=== PATIENT | female | born 1970 | race Caucasian/White ===

== ENCOUNTER 2017-12-25 07:30 | Day surgery (SDC) | payer OTHER ==
[~2017-12-25 07:30] MED LIST: ceFAZolin IV 1 gm in Dextrose 1 GM/50 ML BAG IVPB ONE
[2017-12-25] MEDS ORDERED: Morphine 10 mg/5 ml Oral Soln PO PRN (07:40)
[2017-12-25] MEDS ORDERED: Dextrose 5%/0.45% NS 1,000 ML IV SCH (07:45)
[2017-12-25] MEDS ORDERED: Propofol 10 mg/ml Inj (20 ML) ONE (11:13)
[2017-12-25] MEDS ORDERED: Succinylcholine Chloride 20 mg/ml Syr (5 ml) IV ONE (11:14)
[2017-12-25] MEDS ORDERED: Lactated Ringer's 1,000 ML IV SCH (12:15)
[2017-12-25 12:23] VITALS: O2SAT 100
[2017-12-25] MEDS ORDERED: Lactated Ringer's 1,000 ML IV ONE (13:45)
[2017-12-25] MEDS ORDERED: Acetaminophen 650mg/20.3ml solution UD PO PRN (14:30)
[2017-12-25 14:38] VITALS: RESP 16
[2017-12-25 16:00] VITALS: BP 148/72; PULSE 64; TEMP 97.3
--- NOTE | 2017-12-25 23:00 | OP ---
PROCEDURE DATE: 12/25/2017 PREOPERATIVE DIAGNOSIS: Chronic tonsillitis. POSTOPERATIVE DIAGNOSIS: Chronic tonsillitis. PROCEDURE: Tonsillectomy. SIGNIFICANT FINDINGS: 2+ tonsils. DESCRIPTION OF PROCEDURE: The patient was brought into the room and placed in the supine position. Anesthesia was initiated through an ET tube. The patient was draped in the usual manner. Mouth gag was placed in the oral cavity, opened and suspended on the [employer] standards associate the usual manner. Right tonsil was grabbed and pulled medially. Incision was made in the anterior tonsillar pillar using plasma knife. Dissections were done between tonsil and tonsillar fossa using plasma knife until the tonsil was removed. Bleeding was controlled using plasma knife. Next, the other tonsil was grabbed and pulled medially, incision was made in the anterior tonsillar pillar using a plasma knife. Dissection was done between tonsil and tonsillar fossa using plasma knife until the tonsil was removed. Bleeding was controlled using plasma knife. Both tonsillar beds were rubbed vigorously with plasma knife wand. No bleeding was noted. Mouth gag was let down for 30 seconds and put back up, no bleeding was noted. Mouth gag was taken down and removed. The patient was taken off anesthesia and taken to the recovery room in stable manner. Ray Cronin MD
== END 2017-12-25 15:45 | disposition home or self-care (01) ==
LOC: C.SDS 07:30
PROVIDERS: ATTEND Otolaryngology
DX: J35.01 Chronic tonsillitis (principal)
CPT/HCPCS: 42826; 88304; J0690; J1100; J1170; J2405; J2704; J3010; J7120

== ENCOUNTER 2017-12-27 19:00 | Emergency (ER) | payer OTHER ==
[2017-12-27 19:19] VITALS: RESP 18
--- NOTE | 2017-12-27 19:29 | C.PDOC ---
History Of Present Illness Patient is a 47-year-old female, s/p tonsillectomy two days ago, presents to the emergency department with complaints of throat pain. Patient states it hurts to swallow, and she is tasting blood. Denies any fevers, vomiting, shortness of breath, chest pain, or any other associated symptoms. No other complaints at this time. Time Seen by Provider: 12/27/17 19:29 Chief Complaint (Nursing): ENT Problem History Per: Patient Onset/Duration Of Symptoms: Days Past Medical History Reviewed: Historical Data, Nursing Documentation, Vital Signs Vital Signs: Last Vital Signs Temp 98.2 F 12/27/17 21:04 Pulse 69 12/27/17 21:04 Resp 18 12/27/17 21:04 BP 110/72 12/27/17 21:04 Pulse Ox 100 12/27/17 21:04 - Medical History PMH: Fractures (HX: FX. 5TH FINGER-LEFT) - [facility] Procedures CLOSED ENDOSCOPIC BIOPSY OF LARGE INTESTINE (02/16/03) D & C NEC (01/25/03) ESOPHAGOGASTRODUODENOSCOPY [EGD] W/CLOSED BIOPSY (02/16/03) INJECT/INFUSE NEC (11/29/06) LOCAL DESTR OVA LES NEC (09/06/04) OTH UNILAT SALPINGO-OOPHORECTOMY (09/06/04) OTH VAGINAL HYSTERECTOMY (09/06/04) OTHER ENDOSCOPY OF SM INTEST (12/06/02) SPINAL TAP (05/24/98) Family History: States: No Known Family Hx - Social History Hx Alcohol Use: No Hx Substance Use: No - Immunization History Hx Tetanus Toxoid Vaccination: No Hx Influenza Vaccination: No Hx Pneumococcal Vaccination: No Review Of Systems Constitutional: Negative for: Fever, Chills ENT: Positive for: Throat Pain. Negative for: Nose Discharge, Mouth Swelling, Throat Swelling Cardiovascular: Negative for: Chest Pain Respiratory: Negative for: Shortness of Breath Gastrointestinal: Negative for: Vomiting Physical Exam - Physical Exam Appears: Non-toxic, No Acute Distress Skin: Warm, Dry, No Rash Head: Atraumatic, Normacephalic Eye(s): bilateral: Normal Inspection Nose: Normal Oral Mucosa: Moist Lips: Normal Appearing Throat: Other ((+)tonsillectomy scar. No blood visualized in posterior oropharynx) Neck: Normal ROM, Supple Cardiovascular: Rhythm Regular, No Murmur Respiratory: Normal Breath Sounds, No Accessory Muscle Use, No Rales, No Rhonchi , No Wheezing Neurological/Psych: Oriented x3, Normal Speech ED Course And Treatment O2 Sat by Pulse Oximetry: 98 (RA) Pulse Ox Interpretation: Normal Progress Note: Patient treated with PO Toradol and IVFs. Disposition Counseled Patient/Family Regarding: Studies Performed, Diagnosis, Need For Followup - Disposition Referrals: Ray Cronin MD [Primary Care Provider] - Disposition: HOME/ ROUTINE Disposition Time: 21:06 Condition: FAIR Forms: [employer] (Eritrean) - Clinical Impression Clinical Impression: Throat pain, S/P tonsillectomy - Scribe Statement The provider has reviewed the documentation as recorded by the Scribe (Cathleen Vázquez) All medical record entries made by the Scribe were at my direction and personally dictated by me. I have reviewed the chart and agree that the record accurately reflects my personal performance of the history, physical exam, medical decision making, and the department course for this patient. I have also personally directed, reviewed, and agree with the discharge instructions and disposition.
[2017-12-27] MEDS ORDERED: Sodium Chloride 0.9% 1,000 ML IV ONE (19:43)
[2017-12-27] MEDS ORDERED: Sodium Chloride 0.9% 1,000 ML ONE (19:53)
[2017-12-27 21:04] VITALS: BP 110/72; PULSE 69; TEMP 98.2
[2017-12-27 21:08] VITALS: O2SAT 98
== END 2017-12-27 21:22 | disposition home or self-care (01) ==
LOC: SUPCPDRO 19:00 → C.ER 19:00
DX: R07.0 Pain in throat (principal); Z98.890 Other specified postprocedural states
CPT/HCPCS: 96361; 96374; 99283; J1885; J7040

== ENCOUNTER 2018-01-01 13:29 | Inpatient (IN) | payer OTHER ==
[2018-01-01] MEDS ORDERED: Sodium Chloride 0.9% 1,000 ML IV ONE (13:50)
[2018-01-01] MEDS ORDERED: Sodium Chloride 0.9% 1,000 ML ONE (14:48)
[2018-01-01] MEDS ORDERED: Sodium Chloride 0.9% 1,000 ML IV STA (15:15)
[2018-01-01 15:17] LABS: BASO % 0.5 % (0.0-2.0); EOS % 0.2 % (0.0-4.0); HEMOGLOBIN 12.9 g/dL (11.0-16.0); LYMPH # 1.4 K/uL (1.0-4.3); LYMPH % 20.6 % (20.0-40.0); MEAN CELL VOLUME 91.3 fL (81.0-99.0); MEAN CORPUSCULAR HEMOGLOBIN 30.2 pg (27.0-31.0); MEAN CORPUSCULAR HGB CONC 33.1 g/dL (33.0-37.0); MEAN PLATELET VOLUME 8.6 fL (7.2-11.7); MONO # 0.6 K/uL (0.0-0.8); MONO % 8.7 % (0.0-10.0); NEUT # 4.9 K/uL (1.8-7.0); RBC 4.26 Mil/uL (3.80-5.20); RED CELL DISTRIBUTION WIDTH 13.6 % (11.5-14.5)
[2018-01-01] MEDS ORDERED: Nystatin 100,000 Units/ml Oral Susp 5 ml UD PO STA (15:17)
[2018-01-01 15:31] LABS: ALB/GLOB RATIO 0.9 (1.0-2.1); ALBUMIN 4.4 g/dL (3.5-5.0); ALT/SGPT 38 U/L (9-52); AST/SGOT 30 U/L (14-36); BLOOD UREA NITROGEN 26 mg/dL (7-17); CALCIUM 9.9 mg/dl (8.6-10.4); GFR AFRICAN-AMERICAN > 60; GFR NON-AFRICAN AMERICAN 59; LIPASE 25 U/L (23-300)
--- NOTE | 2018-01-01 17:00 | C.PDOC ---
Time Seen by Provider: 01/01/18 13:45 Chief Complaint (Nursing): Weakness/Neurological Deficit Past Medical History Vital Signs: Last Vital Signs Temp 98.1 F 01/01/18 13:38 Pulse 60 01/01/18 13:38 Resp 20 01/01/18 13:38 BP 117/67 01/01/18 13:38 Pulse Ox 99 01/01/18 13:38 - Medical History PMH: Fractures (HX: FX. 5TH FINGER-LEFT) Denies: Chronic Kidney Disease - [facility] Procedures CLOSED ENDOSCOPIC BIOPSY OF LARGE INTESTINE (02/16/03) D & C NEC (01/25/03) ESOPHAGOGASTRODUODENOSCOPY [EGD] W/CLOSED BIOPSY (02/16/03) INJECT/INFUSE NEC (11/29/06) LOCAL DESTR OVA LES NEC (09/06/04) OTH UNILAT SALPINGO-OOPHORECTOMY (09/06/04) OTH VAGINAL HYSTERECTOMY (09/06/04) OTHER ENDOSCOPY OF SM INTEST (12/06/02) SPINAL TAP (05/24/98) - Social History Hx Alcohol Use: No Hx Substance Use: No - Immunization History Hx Tetanus Toxoid Vaccination: No Hx Influenza Vaccination: No Hx Pneumococcal Vaccination: No ED Course And Treatment - Laboratory Results Result Diagrams: 01/01/18 15:11 01/01/18 15:11 Lab Interpretation: Normal O2 Sat by Pulse Oximetry: 99 Progress Note: IV NS x 2 liters, toradol IV, Nystatin swish and swallow PO - Physician Consult Information Outcome Of Conversation: 1400: d/w Dr Cronin- ENT, asks for hydration, labs, oral swish and swallow and 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 1700: d/w Dr. Paul- Medicine Bulldozer Mechanic- ok to med/surg Obs. Medical Decision Making Medical Decision Making: s/p tonsillectomy 12/25/17 poor PO intake and poor pain control @ home (cannot tolerate narcotics) oral thrush and clinically dry but labs wnl Disposition Doctor Will See Patient In The: Hospital Counseled Patient/Family Regarding: Studies Performed, Diagnosis - Disposition Disposition: HOSPITALIZED Disposition Time: 17:01 Condition: GOOD - Clinical Impression Clinical Impression: S/P tonsillectomy, Oral thrush, Dehydration
--- NOTE | 2018-01-01 19:58 | CP.PCM.HP ---
History of Present Illness - History of Present Illness History of Present Illness: RECENT H/O TONSILLECTOMY HAS DIFFICULTY SWALLOWING AND ODONOPHAGIA . WAS EVALUATED BY ENT AND NOTICED WHITE PATCHES AND ADMITTED FOR IV HYDRATION Present on Admission - Present on Admission Any Indicators Present on Admission: No Review of Systems - Review of Systems All systems: reviewed and no additional remarkable complaints except (DIFFICULT SWALLOWING) Past Patient History - Infectious Disease Hx of Infectious Diseases: None - Past Medical History & Family History Past Medical History?: Yes - Past Social History Smoking Status: Light Smoker < 10 Cigarettes Daily - CARDIAC Hx Cardiac Disorders: No - PULMONARY Hx Respiratory Disorders: No - NEUROLOGICAL Hx Neurological Disorder: No - HEENT Hx HEENT Problems: Yes Other/Comment: HX: CHRONIC TONSILLITIS - RENAL Hx Chronic Kidney Disease: No - ENDOCRINE/METABOLIC Hx Endocrine Disorders: No - HEMATOLOGICAL/ONCOLOGICAL Hx Blood Disorders: No - INTEGUMENTARY Hx Dermatological Problems: No - MUSCULOSKELETAL/RHEUMATOLOGICAL Hx Fractures: Yes (HX: FX. 5TH FINGER-LEFT) - GASTROINTESTINAL Hx Gastrointestinal Disorders: No - GENITOURINARY/GYNECOLOGICAL Hx Genitourinary Disorders: Yes Other/Comment: HX: ENDOMETRIOSIS - PSYCHIATRIC Hx Substance Use: No - SURGICAL HISTORY Hx Surgeries: Yes Hx Hysterectomy: Yes (PARTIAL HYSTERECTOMY(HX. ENDOMETROSIS)) Hx Musculoskeletal Surgery: Yes Hx Orthopedic Surgery: Yes Other/Comment: HX: SURGERY TO REPAIR TORN RIGHT ROTATOR CUFF. HX: FUSION LEFT 5TH FINGER DUE TO FX. - ANESTHESIA Hx Anesthesia: Yes Hx Anesthesia Reactions: No Hx Malignant Hyperthermia: No Meds Allergies/Adverse Reactions: Allergies Allergy/AdvReac Type Severity Reaction Status Date / Time codeine Allergy Intermediate VOMITING Verified 01/01/18 13:38 Physical Exam - Head Exam Head Exam: ATRAUMATIC, NORMAL INSPECTION, NORMOCEPHALIC - Eye Exam Eye Exam: EOMI, Normal appearance, PERRL - ENT Exam ENT Exam: Mucous Membranes Dry (WHITE THRUSH ) - Neck Exam Neck exam: Positive for: Normal Inspection - Respiratory Exam Respiratory Exam: Clear to Auscultation Bilateral, NORMAL BREATHING PATTERN - Cardiovascular Exam Cardiovascular Exam: REGULAR RHYTHM - GI/Abdominal Exam GI & Abdominal Exam: Normal Bowel Sounds, Soft. absent: Tenderness Results - Vital Signs Recent Vital Signs: Last Vital Signs Temp 97.8 F 01/01/18 19:35 Pulse 62 01/01/18 19:35 Resp 18 02/09/18 19:35 BP 118/72 01/01/18 19:35 Pulse Ox 97 01/01/18 19:35 - Labs Result Diagrams: 01/01/18 15:11 01/01/18 15:11 Labs: Laboratory Results - last 24 hr 01/01/18 01/01/18 15:11 15:11 WBC 7.0 RBC 4.26 Hgb 12.9 Hct 38.9 MCV 91.3 MCH 30.2 MCHC 33.1 RDW 13.6 Plt Count 240 MPV 8.6 Neut % (Auto) 70.0 Lymph % (Auto) 20.6 Barron % (Auto) 8.7 Eos % (Auto) 0.2 Baso % (Auto) 0.5 Neut # (Auto) 4.9 Lymph # (Auto) 1.4 Barron # (Auto) 0.6 Eos # (Auto) 0.0 Baso # (Auto) 0.0 Sodium 141 Potassium 4.4 Chloride 100 Carbon Dioxide 25 Anion Gap 20 BUN 26 H Creatinine 1.0 Est GFR ( Amer) > 60 Est GFR (Non-Af Amer) 59 Random Glucose 82 Calcium 9.9 Total Bilirubin 0.9 AST 30 ALT 38 Alkaline Phosphatase 81 Total Protein 9.2 H Albumin 4.4 Globulin 4.8 H Albumin/Globulin Ratio 0.9 L Lipase 25 Assessment & Plan (1) Oral thrush Status: Acute Comment: IV FLUID AND DIFLUCAN (2) S/P tonsillectomy Status: Acute
[2018-01-01] MEDS: Sodium Chloride 0.45% 1,000 ML IV SCH (20:30)
--- NOTE | 2018-01-01 21:04 | C.PDOC ---
History Of Present Illness Patient is a 47 y/o female who presents to the ED referred by Dr. Cronin for sore throat and poor PO intake since tonsillectomy 12/26/17. No other physical complaints at this time. Time Seen by Provider: 01/01/18 13:45 Chief Complaint (Nursing): Weakness/Neurological Deficit History Per: Patient History/Exam Limitations: None Onset/Duration Of Symptoms: Days (since tonsillectomy 12/26/17) Quality (Mouth/Throat): Other (sore throat, decreased PO intake) Symptoms Have Been: Continuous Severity: Moderate Past Medical History Reviewed: Historical Data, Nursing Documentation, Vital Signs Vital Signs: Last Vital Signs Temp 97.9 F 01/01/18 22:29 Pulse 60 01/01/18 22:29 Resp 20 01/01/18 22:29 BP 116/70 01/01/18 22:29 Pulse Ox 97 01/01/18 21:11 - Medical History PMH: No Chronic Diseases, Fractures (HX: FX. 5TH FINGER-LEFT) Denies: Chronic Kidney Disease Surgical History: Tonsillectomy (12/26/17) - [facility] Procedures CLOSED ENDOSCOPIC BIOPSY OF LARGE INTESTINE (02/16/03) D & C NEC (01/25/03) ESOPHAGOGASTRODUODENOSCOPY [EGD] W/CLOSED BIOPSY (02/16/03) INJECT/INFUSE NEC (11/29/06) LOCAL DESTR OVA LES NEC (09/06/04) OTH UNILAT SALPINGO-OOPHORECTOMY (09/06/04) OTH VAGINAL HYSTERECTOMY (09/06/04) OTHER ENDOSCOPY OF SM INTEST (12/06/02) SPINAL TAP (05/24/98) Family History: States: No Known Family Hx - Social History Hx Tobacco Use: No Hx Alcohol Use: No Hx Substance Use: No - Immunization History Hx Tetanus Toxoid Vaccination: No Hx Influenza Vaccination: No Hx Pneumococcal Vaccination: No Review Of Systems ENT: Positive for: Throat Pain (sore throat) Physical Exam - Physical Exam Appears: Well, Non-toxic, No Acute Distress Skin: Normal Color, Warm, Dry Head: Atraumatic, Normacephalic Tongue: Other (greenish-white, dry coating on tongue; clinically dry) Throat: Other (whitish coating on back of oropharynx; patent airway; negative hot potato voice) ED Course And Treatment - Laboratory Results Result Diagrams: 01/01/18 15:11 01/01/18 15:11 O2 Sat by Pulse Oximetry: 97 Medical Decision Making Medical Decision Making: Blood work, drug screen, HCG urine, and UA ordered. IV fluids and nystatin oral administered. Patient to be admitted. Disposition Doctor Will See Patient In The: Hospital Counseled Patient/Family Regarding: Studies Performed, Diagnosis - Disposition Disposition: HOSPITALIZED Disposition Time: 16:30 Condition: GOOD - Clinical Impression Clinical Impression: S/P tonsillectomy, Oral thrush, Dehydration - Scribe Statement The provider has reviewed the documentation as recorded by the Scribe Nanette Charles All medical record entries made by the Chreylibnel were at my direction and personally dictated by me. I have reviewed the chart and agree that the record accurately reflects my personal performance of the history, physical exam, medical decision making, and the department course for this patient. I have also personally directed, reviewed, and agree with the discharge instructions and disposition.
[2018-01-01] MEDS: Nystatin 100,000 Units/ml Oral Susp 5 ml UD PO SCH (21:37)
[2018-01-01 22:40] VITALS: RESP 20
[2018-01-02] MEDS: Sodium Chloride 0.45% 1,000 ML IV SCH ×3 (06:58→18:16)
[2018-01-02 08:02] LABS: BARBITURATES, UR NEGATIVE (NEGATIVE); BENZODIAZEPINES, UR NEGATIVE (NEGATIVE); OPIATES, UR NEGATIVE (NEGATIVE); PHENCYCLIDINE, UR NEGATIVE (NEGATIVE)
[2018-01-02] MEDS: Nystatin 100,000 Units/ml Oral Susp 5 ml UD PO SCH ×5 (08:19→22:04)
--- NOTE | 2018-01-02 08:24 | CP.PCM.PN ---
Subjective - Date & Time of Evaluation Date of Evaluation: 01/02/18 Time of Evaluation: 08:23 - Subjective Subjective: thorat pain oc/op: healing well not taking good po spoke to pharmacy, will start patient on ultram Objective - Vital Signs/Intake and Output Vital Signs (last 24 hours): Temp Pulse Resp BP Pulse Ox 97.4 F L 62 20 129/63 98 01/02/18 08:05 01/02/18 08:05 01/02/18 08:05 01/02/18 08:05 01/02/18 08:05 Intake and Output: 01/02/18 01/02/18 06:59 18:59 Intake Total 800 Balance 800 - Medications Medications: Current Medications Sodium Chloride (Sodium Chloride 0.45%) 1,000 mls @ 100 mls/hr IV .Q10H [facility] Last Admin: 01/02/18 06:58 Dose: 100 mls/hr Fluconazole (Diflucan Iv 100 Mg/50 Ml Ns) 50 mls @ 100 mls/hr IVPB DAILY [facility] Ketorolac Tromethamine (Toradol) 30 mg IVP Q6 PRN PRN Reason: pain Nystatin (Nystatin Oral Susp) 5 ml PO QID [facility] Last Admin: 01/02/18 08:19 Dose: 5 ml - Labs Labs: 01/01/18 15:11 01/01/18 15:11
[2018-01-02 08:40] LABS: BASO % 0.5 % (0.0-2.0); EOS % 0.9 % (0.0-4.0); HEMOGLOBIN 11.6 g/dL (11.0-16.0); LYMPH # 2.1 K/uL (1.0-4.3); LYMPH % 40.3 % (20.0-40.0); MEAN CELL VOLUME 91.7 fL (81.0-99.0); MEAN CORPUSCULAR HEMOGLOBIN 30.6 pg (27.0-31.0); MEAN CORPUSCULAR HGB CONC 33.4 g/dL (33.0-37.0); MEAN PLATELET VOLUME 8.6 fL (7.2-11.7); MONO # 0.6 K/uL (0.0-0.8); MONO % 12.3 % (0.0-10.0); NEUT # 2.3 K/uL (1.8-7.0); NRBC % 0.2 % (0.0-2.0); RBC 3.79 Mil/uL (3.80-5.20); RED CELL DISTRIBUTION WIDTH 13.8 % (11.5-14.5); WHITE BLOOD COUNT 5.1 K/uL (4.8-10.8)
[2018-01-02 08:55] LABS: ALBUMIN 3.9 g/dL (3.5-5.0); ALT/SGPT 31 U/L (9-52); AST/SGOT 26 U/L (14-36); BLOOD UREA NITROGEN 24 mg/dL (7-17); CALCIUM 9.6 mg/dl (8.6-10.4); GFR AFRICAN-AMERICAN > 60; GFR NON-AFRICAN AMERICAN > 60
[2018-01-02] MEDS: Enoxaparin 40 mg Syringe SC SCH (09:04)
[2018-01-02] MEDS: Fluconazole IV 100mg/50 ml NS 50 ML IVPB SCH (09:52)
[2018-01-02] MEDS ORDERED: Fluconazole IV 200mg/100 ml NS 100 MG in Premixed IV 1 EA IVPB SCH (10:00)
--- NOTE | 2018-01-02 13:54 | CP.PCM.PN ---
Subjective - Date & Time of Evaluation Date of Evaluation: 01/02/18 Time of Evaluation: 13:53 - Subjective Subjective: CHIEF COMPLAINTS TODAY : ODONOPHAGIA ROS. HEENT : N. Resp : No cough, wheezing ,pleuritic CP ,or hemoptysis Cardio : No anginal CP, PND, orthopnea, palpitation GI : No abd.pain, n/v ,diarrhea or GI bleeding . 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 Musculoskel : No joint swelling , Derm : No rash Psych : Normal affect. Ext : No swelling ,calf pain PE. Pt. is alert awake in no distress. V.S As noted in the chart Head ,ear nose,throat and eyes : Normal. Neck : Supple with normal carotids. Lungs: Clear air entry. Heart : S1 & S2 normal with S4. No murmur. Abd : Soft non tender with normal bowel sounds. Neuro : Moves all ext. with no localized deficit. Ext : No edema with intact pulses.Non tender calves Derm : No rashes or decubitus ulcer. LABS/RADIOLOGY: ASSESSMENT/PLAN : IV HYDRATION AND DIFLUCAN Objective - Vital Signs/Intake and Output Vital Signs (last 24 hours): Temp Pulse Resp BP Pulse Ox 97.4 F L 62 20 129/63 98 01/02/18 08:05 01/02/18 08:05 01/02/18 08:05 01/02/18 08:05 01/02/18 08:05 Intake and Output: 01/02/18 01/02/18 11:59 23:59 Intake Total 800 Balance 800 - Medications Medications: Current Medications Enoxaparin Sodium (Lovenox) 40 mg SC DAILY [facility] Last Admin: 01/02/18 09:04 Dose: 40 mg Sodium Chloride (Sodium Chloride 0.45%) 1,000 mls @ 100 mls/hr IV .Q10H [facility] Last Admin: 01/02/18 06:58 Dose: 100 mls/hr Fluconazole (Diflucan Iv 100 Mg/50 Ml Ns) 50 mls @ 100 mls/hr IVPB DAILY [facility] Last Admin: 01/02/18 09:52 Dose: 100 mls/hr Nystatin (Nystatin Oral Susp) 5 ml PO QID [facility] Last Admin: 01/02/18 09:11 Dose: Not Given Tramadol HCl (Ultram) 50 mg PO TID PRN PRN Reason: pain Last Admin: 01/02/18 09:04 Dose: 50 mg - Labs Labs: 01/02/18 08:13 01/02/18 08:13 Assessment and Plan (1) Oral thrush Status: Acute (2) S/P tonsillectomy Status: Acute
[2018-01-02 14:12] LABS: HCG,QUALITATIVE URINE NEGATIVE (NEGATIVE)
[2018-01-02 14:16] LABS: SQUAMOUS EPITHIAL 10 /hpf (0-5); URINE BACTERIA RARE (<OCC); URINE BILIRUBIN NEGATIVE (NEGATIVE); URINE BLOOD 2+ (NEGATIVE); URINE CLARITY Clear (Clear); URINE COLOR Yellow (YELLOW); URINE GLUCOSE (UA) NORMAL (Normal); URINE LEUKOCYTE ESTERASE NEG Leu/uL (Negative); URINE NITRATE NEGATIVE (NEGATIVE); URINE PROTEIN 1+ mg/dL (NEGATIVE)
[2018-01-03] MEDS: Sodium Chloride 0.45% 1,000 ML IV SCH ×4 (02:00→17:50)
[2018-01-03] MEDS: Fluconazole IV 100mg/50 ml NS 50 ML IVPB SCH (10:25)
[2018-01-03] MEDS: Nystatin 100,000 Units/ml Oral Susp 5 ml UD PO SCH ×4 (10:26→21:05)
[2018-01-03] MEDS: Enoxaparin 40 mg Syringe SC SCH (10:26)
--- NOTE | 2018-01-03 15:01 | CP.PCM.PN ---
Subjective - Date & Time of Evaluation Date of Evaluation: 01/03/18 Time of Evaluation: 15:00 - Subjective Subjective: CLINICALY IMPROVING THRUSH IN DIFLUCAN Objective - Vital Signs/Intake and Output Vital Signs (last 24 hours): Temp Pulse Resp BP Pulse Ox 98.1 F 60 20 132/80 100 01/03/18 00:00 01/03/18 00:00 01/03/18 00:00 01/03/18 00:00 01/03/18 00:05 Intake and Output: 01/03/18 01/03/18 11:59 23:59 Intake Total 1060 Balance 1060 - Medications Medications: Current Medications Enoxaparin Sodium (Lovenox) 40 mg SC DAILY [facility] Last Admin: 01/03/18 10:26 Dose: 40 mg Sodium Chloride (Sodium Chloride 0.45%) 1,000 mls @ 100 mls/hr IV .Q10H [facility] Last Admin: 01/03/18 12:19 Dose: Not Given Fluconazole (Diflucan Iv 100 Mg/50 Ml Ns) 50 mls @ 100 mls/hr IVPB DAILY [facility] Last Admin: 01/03/18 10:25 Dose: 100 mls/hr Nystatin (Nystatin Oral Susp) 5 ml PO QID [facility] Last Admin: 01/03/18 10:26 Dose: 5 ml Tramadol HCl (Ultram) 50 mg PO TID PRN PRN Reason: pain Last Admin: 01/03/18 12:17 Dose: 50 mg - Labs Labs: 01/02/18 08:13 01/02/18 08:13 Assessment and Plan (1) Oral thrush Status: Acute (2) S/P tonsillectomy Status: Acute
[2018-01-04] MEDS: Sodium Chloride 0.45% 1,000 ML IV SCH ×3 (04:20→21:23)
[2018-01-04] MEDS: Enoxaparin 40 mg Syringe SC SCH (09:39)
[2018-01-04] MEDS: Fluconazole IV 100mg/50 ml NS 50 ML IVPB SCH (09:39)
[2018-01-04] MEDS: Nystatin 100,000 Units/ml Oral Susp 5 ml UD PO SCH ×2 (09:41→14:15)
--- NOTE | 2018-01-04 12:29 | CP.PCM.PN ---
Subjective - Date & Time of Evaluation Date of Evaluation: 01/04/18 Time of Evaluation: 12:29 - Subjective Subjective: not taking adequate po throat pain oc/op: healing well cont ivf and pain meds Objective - Vital Signs/Intake and Output Vital Signs (last 24 hours): Temp Pulse Resp BP Pulse Ox 98.8 F 57 L 20 153/60 H 100 01/04/18 08:31 01/04/18 08:31 01/04/18 08:31 01/04/18 08:31 01/04/18 08:31 Intake and Output: 01/04/18 01/04/18 06:59 18:59 Intake Total 1960 Balance 1960 - Medications Medications: Current Medications Enoxaparin Sodium (Lovenox) 40 mg SC DAILY [facility] Last Admin: 01/04/18 09:39 Dose: 40 mg Fluconazole (Diflucan Iv 100 Mg/50 Ml Ns) 50 mls @ 100 mls/hr IVPB DAILY [facility] Last Admin: 01/04/18 09:39 Dose: 100 mls/hr Sodium Chloride (Sodium Chloride 0.45%) 1,000 mls @ 70 mls/hr IV .[id number] [facility] Last Admin: 01/04/18 07:53 Dose: Not Given Nystatin (Nystatin Oral Susp) 5 ml PO QID [facility] Last Admin: 01/04/18 09:41 Dose: 5 ml Tramadol HCl (Ultram) 50 mg PO TID PRN PRN Reason: pain Last Admin: 01/04/18 07:46 Dose: 50 mg - Labs Labs: 01/02/18 08:13 01/02/18 08:13
--- NOTE | 2018-01-04 13:42 | CP.PCM.PN ---
Subjective - Date & Time of Evaluation Date of Evaluation: 01/04/18 Time of Evaluation: 13:42 - Subjective Subjective: CHIEF COMPLAINTS TODAY : ODONOPHAGIA ROS. HEENT : N. Resp : No cough, wheezing ,pleuritic CP ,or hemoptysis Cardio : No anginal CP, PND, orthopnea, palpitation GI : No abd.pain, n/v ,diarrhea or GI bleeding . 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 Musculoskel : No joint swelling , Derm : No rash Psych : Normal affect. Ext : No swelling ,calf pain PE. Pt. is alert awake in no distress. V.S As noted in the chart Head ,ear nose,throat and eyes : Normal. Neck : Supple with normal carotids. Lungs: Clear air entry. Heart : S1 & S2 normal with S4. No murmur. Abd : Soft non tender with normal bowel sounds. Neuro : Moves all ext. with no localized deficit. Ext : No edema with intact pulses.Non tender calves Derm : No rashes or decubitus ulcer. LABS/RADIOLOGY: ASSESSMENT/PLAN : IV HYDRATION AND DIFLUCAN Objective - Vital Signs/Intake and Output Vital Signs (last 24 hours): Temp Pulse Resp BP Pulse Ox 98.8 F 57 L 20 153/60 H 100 01/04/18 08:31 01/04/18 08:31 01/04/18 08:31 01/04/18 08:31 01/04/18 08:31 Intake and Output: 01/04/18 01/04/18 11:59 23:59 Intake Total 800 Balance 800 - Medications Medications: Current Medications Enoxaparin Sodium (Lovenox) 40 mg SC DAILY [facility] Last Admin: 01/04/18 09:39 Dose: 40 mg Fluconazole (Diflucan Iv 100 Mg/50 Ml Ns) 50 mls @ 100 mls/hr IVPB DAILY [facility] Last Admin: 01/04/18 09:39 Dose: 100 mls/hr Sodium Chloride (Sodium Chloride 0.45%) 1,000 mls @ 70 mls/hr IV .[id number] [facility] Last Admin: 01/04/18 07:53 Dose: Not Given Nystatin (Nystatin Oral Susp) 5 ml PO QID [facility] Last Admin: 01/04/18 09:41 Dose: 5 ml Saliva Substitute (First Magic Mouthwash) 5 ml PO QID [facility] Tramadol HCl (Ultram) 50 mg PO TID PRN PRN Reason: pain Last Admin: 01/04/18 07:46 Dose: 50 mg - Labs Labs: 01/02/18 08:13 01/02/18 08:13 Assessment and Plan (1) Oral thrush Status: Acute (2) S/P tonsillectomy Status: Acute
[2018-01-04] MEDS: Mag&Al/Simet/Diphen/Lido 237 ML KIT PO SCH ×3 (14:21→21:22)
--- NOTE | 2018-01-04 23:12 | CP.PCM.CON ---
History of Present Illness - History of Present Illness History of Present Illness: INFECTIOUS DISEASE CONSULT; HPI; Patient is a 47 y/o female who presents to the ED referred by Dr. Cronin on for sore throat and poor PO intake since tonsillectomy 12/26/17. Patient was found to have oral thrush and presently complaining of odontophagia. pATIENT STATES IT ALL STARTED AFTER THE TONSILLECTOMY PATIENT STATES SHE HAS LOST WEIGHT BECAUSE OF INABILITY TO EAT AND SWALLOW. pATIENT STATES SHE COUGHS EVERY TIME SHE STARTS EATING SOMETHING OR FOLLOW SOMETHING EVEN LIQUIDS PATIENT STATES SHE WAS TESTED FOR HIV IN OCTOBER 2017 AND WAS REPORTED NEGATIVE. INFECTIOUS DISEASE CONSULTATION REQUESTED BY PMD BECAUSE OF ODONTOPHAGIA AND ORAL THRUSH. PATIENT PRESENTLY ON BY MOUTH FLUCONAZOLE 100 MG ONCE A DAY DAILY. PATIENT ALSO STATES HER TONGUE RONDON IF SHE DRINKS OR EATS ANYTHING. SHE DENIES ANY FEVERS OR CHILLS. PMH: No Chronic Diseases, Fractures (HX: FX. 5TH FINGER-LEFT) Denies: Chronic Kidney Disease Surgical History: Tonsillectomy (12/26/17) - [facility] Procedures CLOSED ENDOSCOPIC BIOPSY OF LARGE INTESTINE (02/16/03) D & C NEC (01/25/03) ESOPHAGOGASTRODUODENOSCOPY [EGD] W/CLOSED BIOPSY (02/16/03) INJECT/INFUSE NEC (11/29/06) LOCAL DESTR OVA LES NEC (09/06/04) OTH UNILAT SALPINGO-OOPHORECTOMY (09/06/04) OTH VAGINAL HYSTERECTOMY (09/06/04) OTHER ENDOSCOPY OF SM INTEST (12/06/02) SPINAL TAP (05/24/98) Family History: States: No Known Family Hx - Social History Hx Tobacco Use: No Hx Alcohol Use: No Hx Substance Use: No - Immunization History Hx Tetanus Toxoid Vaccination: No Hx Influenza Vaccination: No Hx Pneumococcal Vaccination: No Review Of Systems ENT: Positive for: Throat Pain (sore throat) REST OF THE REVIEW OF SYSTEM OF 12 SYSTEMS UNREMARKABLE. ALLERGY;CODEINE. Past Patient History - Infectious Disease Hx of Infectious Diseases: None - Past Medical History & Family History Past Medical History?: Yes - Past Social History Smoking Status: Never Smoked - CARDIAC Hx Cardiac Disorders: No - PULMONARY Hx Respiratory Disorders: No - NEUROLOGICAL Hx Neurological Disorder: No - HEENT Hx HEENT Problems: Yes Other/Comment: HX: CHRONIC TONSILLITIS - RENAL Hx Chronic Kidney Disease: No - ENDOCRINE/METABOLIC Hx Endocrine Disorders: No - HEMATOLOGICAL/ONCOLOGICAL Hx Blood Disorders: No - INTEGUMENTARY Hx Dermatological Problems: No - MUSCULOSKELETAL/RHEUMATOLOGICAL Hx Falls: No Hx Fractures: Yes (HX: FX. 5TH FINGER-LEFT) - GASTROINTESTINAL Hx Gastrointestinal Disorders: No - GENITOURINARY/GYNECOLOGICAL Hx Genitourinary Disorders: Yes Other/Comment: HX: ENDOMETRIOSIS - PSYCHIATRIC Hx Substance Use: No - SURGICAL HISTORY Hx Tonsillectomy: Yes (12/26/17) - ANESTHESIA Hx Anesthesia: Yes Hx Anesthesia Reactions: No Hx Malignant Hyperthermia: No Meds Allergies/Adverse Reactions: Allergies Allergy/AdvReac Type Severity Reaction Status Date / Time codeine Allergy Intermediate VOMITING Verified 01/01/18 13:38 - Medications Medications: Current Medications Enoxaparin Sodium (Lovenox) 40 mg SC DAILY [facility] Last Admin: 01/04/18 09:39 Dose: 40 mg Fluconazole (Diflucan Iv 100 Mg/50 Ml Ns) 50 mls @ 100 mls/hr IVPB DAILY [facility] Last Admin: 01/04/18 09:39 Dose: 100 mls/hr Sodium Chloride (Sodium Chloride 0.45%) 1,000 mls @ 70 mls/hr IV .[id number] [facility] Last Admin: 01/04/18 21:23 Dose: 70 mls/hr Saliva Substitute (First Magic Mouthwash) 5 ml PO QID [facility] Last Admin: 01/04/18 21:22 Dose: 5 ml Tramadol HCl (Ultram) 50 mg PO TID PRN PRN Reason: pain Last Admin: 01/04/18 17:14 Dose: 50 mg Physical Exam - Constitutional Appears: No Acute Distress - Head Exam Head Exam: NORMAL INSPECTION - Eye Exam Eye Exam: EOMI, PERRL (ORAL THRUSH NOTED ESPECIALLY ON THE TONGUE. ALSO WHITE PATCHES NOTED ON THE PHARYNX.) - ENT Exam ENT Exam: TM's Normal Bilaterally - Neck Exam Neck exam: Positive for: Normal Inspection. Negative for: Lymphadenopathy, Meningismus - Respiratory Exam Respiratory Exam: Clear to Auscultation Bilateral, NORMAL BREATHING PATTERN - Cardiovascular Exam Cardiovascular Exam: REGULAR RHYTHM, +S1, +S2 - GI/Abdominal Exam GI & Abdominal Exam: Normal Bowel Sounds, Soft. absent: Organomegaly - Extremities Exam Extremities exam: Positive for: pedal pulses present. Negative for: calf tenderness, pedal edema - Neurological Exam Neurological exam: Alert, CN II-XII Intact, Oriented x3, Reflexes Normal - Psychiatric Exam Psychiatric exam: Normal Mood - Skin Skin Exam: Normal Color, Warm Results - Vital Signs Recent Vital Signs: Last Vital Signs Temp 97.9 F 01/04/18 16:58 Pulse 55 L 01/04/18 16:58 Resp 20 01/04/18 16:58 BP 133/79 01/04/18 16:58 Pulse Ox 100 01/04/18 16:58 - Labs Result Diagrams: 01/02/18 08:13 01/02/18 08:13 Assessment & Plan (1) Oral thrush Assessment and Plan: patient has oral thrush has been on IV fluconazole 100 mg once a day but not getting better Will switch her to IV micafungin 100 mg every 24 hourly for broader fungal cultures. start Mycelex Bella to suck po qid . Throat culture for now check HIV 1 and 2 antibody Will check HIV 1 antibody/[id number] test .Lymphocytes subset studies. Blood cultures 2 sets today. Chest x-ray to see or any aspiration pneumonia. Status: Acute (2) Odynophagia Assessment and Plan: as above Status: Acute (3) S/P tonsillectomy Assessment and Plan: status post tonsillectomy 12/26/17. ENT ON BOARD Status: Acute
[2018-01-05] MEDS: Micafungin 100 MG in Sodium Chloride 0.9% 100 ML IV SCH ×2 (01:35→23:42)
[2018-01-05] MEDS: Mag&Al/Simet/Diphen/Lido 237 ML KIT PO SCH ×4 (09:22→21:07)
[2018-01-05] MEDS: Enoxaparin 40 mg Syringe SC SCH (09:24)
--- NOTE | 2018-01-05 09:56 | CP.PCM.PN ---
Subjective - Date & Time of Evaluation Date of Evaluation: 01/05/18 Time of Evaluation: 09:54 - Subjective Subjective: decreased throat pain, taking ok po ocop; healing well, white d/c on tongue a/p: ok to d/c home amanda cont nystatin and ultram at home Objective - Vital Signs/Intake and Output Vital Signs (last 24 hours): Temp Pulse Resp BP Pulse Ox 98.6 F 61 20 127/76 98 01/05/18 07:33 01/05/18 07:33 01/05/18 07:33 01/05/18 07:33 01/05/18 07:33 Intake and Output: 01/05/18 01/05/18 06:59 18:59 Intake Total 250 Output Total 3 Balance 247 - Medications Medications: Current Medications Clotrimazole (Mycelex Bella) 10 mg PO 5XD [facility] Last Admin: 01/05/18 09:25 Dose: Not Given Enoxaparin Sodium (Lovenox) 40 mg SC DAILY [facility] Last Admin: 01/05/18 09:24 Dose: Not Given Sodium Chloride (Sodium Chloride 0.45%) 1,000 mls @ 70 mls/hr IV .[id number] [facility] Last Admin: 01/04/18 21:23 Dose: 70 mls/hr Micafungin Sodium 100 mg/ (Sodium Chloride) 100 mls @ 100 mls/hr IV Q24H [facility] Last Admin: 01/05/18 01:35 Dose: 100 mls/hr Saliva Substitute (First Magic Mouthwash) 5 ml PO QID [facility] Last Admin: 01/05/18 09:22 Dose: 5 ml Tramadol HCl (Ultram) 50 mg PO TID PRN PRN Reason: pain Last Admin: 01/05/18 05:20 Dose: 50 mg - Labs Labs: 01/02/18 08:13 01/02/18 08:13
--- NOTE | 2018-01-05 13:30 | CP.PCM.PN ---
Subjective - Date & Time of Evaluation Date of Evaluation: 01/05/18 Time of Evaluation: 13:29 - Subjective Subjective: CHIEF COMPLAINTS TODAY : ODONOPHAGIA ROS. HEENT : N. Resp : No cough, wheezing ,pleuritic CP ,or hemoptysis Cardio : No anginal CP, PND, orthopnea, palpitation GI : No abd.pain, n/v ,diarrhea or GI bleeding . 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 Musculoskel : No joint swelling , Derm : No rash Psych : Normal affect. Ext : No swelling ,calf pain PE. Pt. is alert awake in no distress. V.S As noted in the chart Head ,ear nose,throat and eyes : Normal. Neck : Supple with normal carotids. Lungs: Clear air entry. Heart : S1 & S2 normal with S4. No murmur. Abd : Soft non tender with normal bowel sounds. Neuro : Moves all ext. with no localized deficit. Ext : No edema with intact pulses.Non tender calves Derm : No rashes or decubitus ulcer. LABS/RADIOLOGY: ASSESSMENT/PLAN : ID INPUT NOTED ON IV MICOFUNGIN Objective - Vital Signs/Intake and Output Vital Signs (last 24 hours): Temp Pulse Resp BP Pulse Ox 98.6 F 61 20 127/76 98 01/05/18 07:33 01/05/18 07:33 01/05/18 07:33 01/05/18 07:33 01/05/18 07:33 - Medications Medications: Current Medications Clotrimazole (Mycelex Bella) 10 mg PO 5XD [facility] Last Admin: 01/05/18 09:25 Dose: Not Given Enoxaparin Sodium (Lovenox) 40 mg SC DAILY [facility] Last Admin: 01/05/18 09:24 Dose: Not Given Sodium Chloride (Sodium Chloride 0.45%) 1,000 mls @ 70 mls/hr IV .[id number] [facility] Last Admin: 01/04/18 21:23 Dose: 70 mls/hr Micafungin Sodium 100 mg/ (Sodium Chloride) 100 mls @ 100 mls/hr IV Q24H [facility] Last Admin: 01/05/18 01:35 Dose: 100 mls/hr Saliva Substitute (First Magic Mouthwash) 5 ml PO QID [facility] Last Admin: 01/05/18 09:22 Dose: 5 ml Tramadol HCl (Ultram) 50 mg PO TID PRN PRN Reason: pain Last Admin: 01/05/18 05:20 Dose: 50 mg - Labs Labs: 01/02/18 08:13 01/02/18 08:13 Assessment and Plan (1) Oral thrush Status: Acute (2) S/P tonsillectomy Status: Acute
[2018-01-05] MEDS: Sodium Chloride 0.45% 1,000 ML IV SCH ×2 (13:39→14:01)
--- NOTE | 2018-01-05 14:39 | RAD ---
PROCEDURE: CHEST RADIOGRAPH, 1 VIEW HISTORY: odynophagia/ oral thrush COMPARISON: None available. FINDINGS: LUNGS: Clear. PLEURA: No pneumothorax or pleural fluid seen. CARDIOVASCULAR: No radiographic findings to suggest acute or significant cardiovascular disease. OSSEOUS STRUCTURES: No significant abnormalities. VISUALIZED UPPER ABDOMEN: Normal. OTHER FINDINGS: None. IMPRESSION: No active disease.
--- NOTE | 2018-01-05 23:06 | CP.PCM.PN ---
Subjective - Date & Time of Evaluation Date of Evaluation: 01/05/18 Time of Evaluation: 23:05 - Subjective Subjective: CHIEF COMPLAINTS TODAY : status post tonsillectomy 12/26/17. c/o with odynophagia. ROS. HEENT : N. +ve ORAL THRUSH. TONGUE COATED. Resp : No cough, wheezing ,pleuritic CP ,or hemoptysis Cardio : No anginal CP, PND, orthopnea, palpitation GI : No abd.pain, n/v ,diarrhea or GI bleeding . 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 Musculoskel : No joint swelling , Derm : No rash Psych : Normal affect. Ext : No swelling ,calf pain PE. Pt. is alert awake in no distress. V.S As noted in the chart Head ,ear nose,throat and eyes : Normal. ORAL THRUSH, TONGUE COATED, S/P TONSILLECTOMY Neck : Supple with normal carotids. Lungs: Clear air entry. Heart : S1 & S2 normal with S4. No murmur. Abd : Soft non tender with normal bowel sounds. Neuro : Moves all ext. with no localized deficit. Ext : No edema with intact pulses.Non tender calves Derm : No rashes or decubitus ulcer. LABS/RADIOLOGY:. HIV 1 AND 2 ANTIBODY NEGATIVE.. ASSESSMENT S/P TONSILLECTOMY 12/26/17 .ORAL CANDIDIASIS REFRACTORY, ODYNOOPHAGIA /PLAN : CONTINUE iv MICAFUNGIN-DAY 2. MYCELEX TROCHES TO SUCK 4 TIMES A DAY. ANALGESICS PER ENT. Objective - Vital Signs/Intake and Output Vital Signs (last 24 hours): Temp Pulse Resp BP Pulse Ox 98.3 F 59 L 20 134/71 98 01/05/18 15:15 01/05/18 15:15 01/05/18 15:15 01/05/18 15:15 01/05/18 15:15 Intake and Output: 01/05/18 01/06/18 18:59 06:59 Intake Total 300 Balance 300 - Medications Medications: Current Medications Clotrimazole (Mycelex Bella) 10 mg PO 5XD [facility] Last Admin: 01/05/18 21:07 Dose: 10 mg Enoxaparin Sodium (Lovenox) 40 mg SC DAILY [facility] Last Admin: 01/05/18 09:24 Dose: Not Given Sodium Chloride (Sodium Chloride 0.45%) 1,000 mls @ 70 mls/hr IV .[id number] [facility] Last Admin: 01/05/18 14:01 Dose: 70 mls/hr Micafungin Sodium 100 mg/ (Sodium Chloride) 100 mls @ 100 mls/hr IV Q24H [facility] Last Admin: 01/05/18 01:35 Dose: 100 mls/hr Saliva Substitute (First Magic Mouthwash) 5 ml PO QID [facility] Last Admin: 01/05/18 21:07 Dose: 5 ml Tramadol HCl (Ultram) 50 mg PO TID PRN PRN Reason: pain Last Admin: 01/05/18 17:46 Dose: 50 mg - Labs Labs: 01/02/18 08:13 01/02/18 08:13 Assessment and Plan (1) Oral thrush Status: Acute (2) Odynophagia Status: Acute (3) S/P tonsillectomy Status: Acute
[2018-01-06] MEDS: Mag&Al/Simet/Diphen/Lido 237 ML KIT PO SCH ×2 (09:17→13:03)
[2018-01-06] MEDS: Enoxaparin 40 mg Syringe SC SCH (09:18)
[2018-01-06 11:18] LABS: % CD4 (T HELPER CELL) 49 Percent (30-61); % CD8 (SUPPRESSOR T CELL) 40 Percent (12-42); ABSOLUTE CD4 CELLS 910 Cells/mcL (490-1740); ABSOLUTE CD8 CELLS 747 Cells/mcL (180-1170); ABSOLUTE LYMPHOCYTES 1854 Cells/mcL (850-3900); HELPER/SUPPRESSOR RATIO 1.22 Ratio (0.86-5.00)
--- NOTE | 2018-01-06 13:12 | CP.PCM.DIS ---
Provider - Provider Date of Admission: 01/03/18 15:16 Attending physician: Idris Paul MD Time Spent in preparation of Discharge (in minutes): 30 Diagnosis - Discharge Diagnosis (1) Oral thrush Status: Acute (2) S/P tonsillectomy Status: Acute Hospital Course - Lab Results Lab Results: Most Recent Lab Values WBC 5.1 K/uL (4.8-10.8) 01/02/18 08:13 RBC 3.79 Mil/uL (3.80-5.20) L 01/02/18 08:13 Hgb 11.6 g/dL (11.0-16.0) 01/02/18 08:13 Hct 34.7 % (34.0-47.0) 01/02/18 08:13 MCV 91.7 fL (81.0-99.0) 01/02/18 08:13 MCH 30.6 pg (27.0-31.0) 01/02/18 08:13 MCHC 33.4 g/dL (33.0-37.0) 01/02/18 08:13 RDW 13.8 % (11.5-14.5) 01/02/18 08:13 Plt Count 195 K/uL (130-400) 01/02/18 08:13 MPV 8.6 fL (7.2-11.7) 01/02/18 08:13 Neut % (Auto) 46.0 % (50.0-75.0) L 01/02/18 08:13 Lymph % (Auto) 40.3 % (20.0-40.0) H 01/02/18 08:13 Banks % (Auto) 12.3 % (0.0-10.0) H 01/02/18 08:13 Eos % (Auto) 0.9 % (0.0-4.0) 01/02/18 08:13 Baso % (Auto) 0.5 % (0.0-2.0) 01/02/18 08:13 Neut # (Auto) 2.3 K/uL (1.8-7.0) 01/02/18 08:13 Lymph # (Auto) 2.1 K/uL (1.0-4.3) 01/02/18 08:13 Banks # (Auto) 0.6 K/uL (0.0-0.8) 01/02/18 08:13 Eos # (Auto) 0.0 K/uL (0.0-0.7) 01/02/18 08:13 Baso # (Auto) 0.0 K/uL (0.0-0.2) 01/02/18 08:13 Sodium 142 mmol/L (132-148) 01/02/18 08:13 Potassium 4.9 mmol/L (3.6-5.2) 01/02/18 08:13 Chloride 106 mmol/L (98-107) 01/02/18 08:13 Carbon Dioxide 25 mmol/L (22-30) 01/02/18 08:13 Anion Gap 17 (10-20) 01/02/18 08:13 BUN 24 mg/dL (7-17) H 01/02/18 08:13 Creatinine 0.9 mg/dL (0.7-1.2) 01/02/18 08:13 Est GFR ( Amer) > 60 01/02/18 08:13 Est GFR (Non-Af Amer) > 60 01/02/18 08:13 Random Glucose 72 mg/dL (65-105) 01/02/18 08:13 Calcium 9.6 mg/dl (8.6-10.4) 01/02/18 08:13 Total Bilirubin 0.8 mg/dL (0.2-1.3) 01/02/18 08:13 AST 26 U/L (14-36) 01/02/18 08:13 ALT 31 U/L (9-52) 01/02/18 08:13 Alkaline Phosphatase 70 U/L (38-126) 01/02/18 08:13 Total Protein 7.8 g/dL (6.3-8.3) 01/02/18 08:13 Albumin 3.9 g/dL (3.5-5.0) 01/02/18 08:13 Globulin 3.8 gm/dL (2.2-3.9) 01/02/18 08:13 Albumin/Globulin Ratio 1.0 (1.0-2.1) 01/02/18 08:13 Lipase 25 U/L (23-300) 01/01/18 15:11 Urine Color Yellow (YELLOW) 01/02/18 14:00 Urine Clarity Clear (Clear) 01/02/18 14:00 Urine pH 5.0 (5.0-8.0) 01/02/18 14:00 Ur Specific [place] 1.027 (1.003-1.030) 01/02/18 14:00 Urine Protein 1+ mg/dL (NEGATIVE) H 01/02/18 14:00 Urine Glucose (UA) Normal mg/dL (Normal) 01/02/18 14:00 Urine Ketones 2+ mg/dL (NEGATIVE) H 01/02/18 14:00 Urine Blood 2+ (NEGATIVE) H 01/02/18 14:00 Urine Nitrate Negative (NEGATIVE) 01/02/18 14:00 Urine Bilirubin Negative (NEGATIVE) 01/02/18 14:00 Urine Urobilinogen 2.0 mg/dL (0.2-1.0) H 01/02/18 14:00 Ur Leukocyte Esterase Neg Taylor/uL (Negative) 01/02/18 14:00 Urine WBC (Auto) 2 /hpf (0-5) 01/02/18 14:00 Urine RBC (Auto) 6 /hpf (0-3) H 01/02/18 14:00 Ur Squamous Epith Cells 10 /hpf (0-5) H 01/02/18 14:00 Urine Bacteria Rare (<OCC) 01/02/18 14:00 Urine HCG, Qual Negative (NEGATIVE) 01/02/18 14:00 Urine Opiates Screen Negative (NEGATIVE) 01/02/18 07:28 Urine Methadone Screen Negative (NEGATIVE) 01/02/18 07:28 Ur Barbiturates Screen Negative (NEGATIVE) 01/02/18 07:28 Ur Phencyclidine Scrn Negative (NEGATIVE) 01/02/18 07:28 Ur Amphetamines Screen Negative (NEGATIVE) 01/02/18 07:28 U Benzodiazepines Scrn Negative (NEGATIVE) 01/02/18 07:28 U Oth Cocaine Metabols Negative (NEGATIVE) 01/02/18 07:28 U Cannabinoids Screen Positive (NEGATIVE) H 01/02/18 07:28 Absolute Lymphs (Flow) 1854 Cells/mcL (850-3900) 01/05/18 07:02 % CD4 Cells 49 Percent (30-61) 01/05/18 07:02 Absolute CD4 Count 910 Cells/mcL (490-1740) 01/05/18 07:02 T-Help/Suppress Ratio 1.22 Ratio (0.86-5.00) 01/05/18 07:02 % CD8 Cells 40 Percent (12-42) 01/05/18 07:02 Absolute CD8 Count 747 Cells/mcL (180-1170) 01/05/18 07:02 HIV 1&2 Ag/Ab, 4th Gen Nonreactive (Nonreactive) 01/05/18 07:02 HIV 1&2 Antibody Screen Negative (NEGATIVE) 01/05/18 07:02 - Hospital Course Hospital Course: RECENT H/O TONSILLECTOMY HAS DIFFICULTY SWALLOWING AND ODONOPHAGIA . WAS EVALUATED BY ENT AND NOTICED WHITE PATCHES AND ADMITTED FOR IV HYDRATION ENT AGRRED ON TREATMENT THE LESION IN MOUTH DID NOT INITIALLY IMPROVED WITH IV DIFLUCAN ID WAS CONSULTED . STARTED ON IV MICOFUNGIN AND PT HAD IMPROVEMENT HIV NEG D/C HOME ON PO MEDS Discharge Exam - Head Exam Head Exam: NORMAL INSPECTION Discharge Plan - Follow Up Plan Condition: GOOD Disposition: HOME/ ROUTINE
--- NOTE | 2018-01-06 16:15 | CP.PCM.PN ---
Subjective - Date & Time of Evaluation Date of Evaluation: 01/06/18 Time of Evaluation: 11:00 - Subjective Subjective: Alert and orientedx3, no sob or chest pains, able to swallow better. Objective - Vital Signs/Intake and Output Vital Signs (last 24 hours): Temp Pulse Resp BP Pulse Ox 98 F 61 20 132/81 97 01/06/18 08:02 01/06/18 08:02 01/06/18 08:02 01/06/18 08:02 01/06/18 08:02 Intake and Output: 01/06/18 01/06/18 06:59 18:59 Intake Total 300 Balance 300 - Medications Medications: Current Medications Clotrimazole (Mycelex Bella) 10 mg PO 5XD [facility] Last Admin: 01/06/18 15:30 Dose: 10 mg Enoxaparin Sodium (Lovenox) 40 mg SC DAILY [facility] Last Admin: 01/06/18 09:18 Dose: 40 mg Sodium Chloride (Sodium Chloride 0.45%) 1,000 mls @ 70 mls/hr IV .[id number] [facility] Last Admin: 01/05/18 14:01 Dose: 70 mls/hr Micafungin Sodium 100 mg/ (Sodium Chloride) 100 mls @ 100 mls/hr IV Q24H [facility] Last Admin: 01/05/18 23:42 Dose: 100 mls/hr Saliva Substitute (First Magic Mouthwash) 5 ml PO QID [facility] Last Admin: 01/06/18 13:03 Dose: 5 ml Tramadol HCl (Ultram) 50 mg PO TID PRN PRN Reason: pain Last Admin: 01/06/18 12:59 Dose: 50 mg - Labs Labs: 01/02/18 08:13 01/02/18 08:13 Assessment and Plan - Assessment and Plan (Free Text) Assessment: Patient admitted with oral thrush, seen and examined. Alert and orientedx3, able to swallow better. Discussed with DR Beverly Pickard, plan to discharge home on diflucan and mycelex bella for 1 week. Advised to follow up with PMD IN 1 week.
[2018-01-06 16:30] VITALS: BP 131/80; PULSE 59; TEMP 98.4; O2SAT 100
== END 2018-01-06 17:35 | disposition home or self-care (01) | DRG 185 ==
LOC: C.ER 13:29 → C.9E 15:16 → UNDOADMOB 15:30 → C.3T 19:11 → OBSVTOIN 01-03 15:16
PROVIDERS: ADMIT Internal Medicine Cardiovascular Disease; ATTEND Internal Medicine Cardiovascular Disease
DX: B37.0 Candidal stomatitis (principal); F17.210 Nicotine dependence, cigarettes, uncomplicated; Z98.890 Other specified postprocedural states

== ENCOUNTER 2018-01-22 13:33 | Emergency (ER) | payer OTHER ==
[2018-01-22 13:42] VITALS: BMI 17.5
--- NOTE | 2018-01-22 14:51 | C.PDOC ---
History Of Present Illness 47 year old female presents to the ED for evaluation of persistent odynophagia which began after she underwent an elective tonsillectomy by Dr. Cronin on 12/25. Patient had multiple visits with Dr. Cronin for the same symptoms. Patient was evaluated by Dr. Cronin yesterday and given another course of antibiotics, which she has not taken yet. Patient report she had oral thrush, which resolved with treatment. Patient refuses to eat solids, but is able to tolerate fluids. Patent denies fever, chills. Time Seen by Provider: 01/22/18 13:52 Chief Complaint (Nursing): GI Problem History Per: Patient History/Exam Limitations: None Onset/Duration Of Symptoms: Days Current Symptoms Are (Timing): Still Present Past Medical History Reviewed: Historical Data, Nursing Documentation, Vital Signs Vital Signs: Last Vital Signs Temp 97.8 F 01/22/18 17:10 Pulse 85 01/22/18 17:10 Resp 18 01/22/18 17:10 BP 112/75 01/22/18 17:10 Pulse Ox 100 01/22/18 17:10 - Medical History PMH: Fractures (HX: FX. 5TH FINGER-LEFT) Denies: Chronic Kidney Disease Surgical History: Tonsillectomy (12/26/17) - [facility] Procedures CLOSED ENDOSCOPIC BIOPSY OF LARGE INTESTINE (02/16/03) D & C NEC (01/25/03) ESOPHAGOGASTRODUODENOSCOPY [EGD] W/CLOSED BIOPSY (02/16/03) INJECT/INFUSE NEC (11/29/06) LOCAL DESTR OVA LES NEC (09/06/04) OTH UNILAT SALPINGO-OOPHORECTOMY (09/06/04) OTH VAGINAL HYSTERECTOMY (09/06/04) OTHER ENDOSCOPY OF SM INTEST (12/06/02) SPINAL TAP (05/24/98) Family History: States: Unknown Family Hx - Social History Hx Tobacco Use: No Hx Alcohol Use: No Hx Substance Use: No - Immunization History Hx Tetanus Toxoid Vaccination: No Hx Influenza Vaccination: No Hx Pneumococcal Vaccination: No Review Of Systems Constitutional: Positive for: Weight loss (20-30 pound weight loss in the past month due to poor PO intake ). Negative for: Fever, Chills ENT: Positive for: Other (odynophagia s/p elective tonsillectomy ) Physical Exam - Physical Exam Appears: Non-toxic, No Acute Distress, Other (thin) Skin: Normal Color, Warm, Dry Head: Atraumatic, Normacephalic Eye(s): bilateral: Normal Inspection Oral Mucosa: Moist Throat: Erythema (mild), No Exudate, No Other (thrush, signs of infection ) Neck: Supple Chest: Symmetrical, No Deformity, No Tenderness Cardiovascular: Rhythm Regular, No Murmur Respiratory: Normal Breath Sounds, No Rales, No Rhonchi, No Wheezing Extremity: Normal ROM, Capillary Refill (less than 2 seconds) Neurological/Psych: Normal Speech, Normal Cognition, Other (flat affect ) ED Course And Treatment - Laboratory Results Result Diagrams: 01/22/18 15:14 01/22/18 15:14 Lab Interpretation: Normal O2 Sat by Pulse Oximetry: 99 (on RA) Pulse Ox Interpretation: Normal Progress Note: Bloodwork and urinalysis ordered and reviewed. Pepcid IVP, Toradol IVP, Lidocaine 2% PO, IV Fluids administered. 1430: Case discussed with Dr. Cronin, who asks for patient to come to his office for evaluation. Patient refuses to leave, stating she is too tired to walk, although she ambulated to the ED. Patient demands for Dr. Cronin to evaluate her in the ED. 1700: IVF, labs, decadron IV, toradol, pepcid,. d/w Dr. Cronin, @ bedside, ok to d/c home w Medrol Dose pack and opt f/u on Thursday (3 days). Pt ok w plan. Reevaluation Time: 16:44 Reassessment Condition: Improved Critical Care Time - Critical Care Note Total Time (in mins): 90 Documented critical care: time excludes all time spent performing seperately billable procedures. Medical Decision Making Medical Decision Making: persistent odynophagia since tonsillectomy 12/25/17 thrush resolved moist and hydrated Seen by [facility] yesteday, and will see in office now ([facility] [address]) oral lido viscous swish and swallow trialed [place] Rx's. 1700: post-tonsillectomy pain vs other odynophagia issues. Seen by Dr. Cronin 2x in 2 days. Ok for d/c , no imaging required. normal labs and hydration. Disposition Doctor Will See Patient In The: Office Counseled Patient/Family Regarding: Studies Performed, Diagnosis - Disposition Referrals: Ray Cronin MD [Staff Provider] - Disposition: HOME/ ROUTINE Disposition Time: 14:50 Condition: GOOD Additional Instructions: follow-up with Dr. Cronin on Thursday Continue Medrol Dose Pack- steroids for local inflammation Continue Augmentin (antibiotic) as prescribed yesterday Drink plenty of fluids. Prescriptions: Methylprednisolone [Medrol Dose Pack (21 tabs)] 4 mg PO DAILY #21 mg Instructions: Dysphagia (DC) Forms: [employer] (Dutch) - Clinical Impression Clinical Impression: Throat pain, S/P tonsillectomy - Scribe Statement The provider has reviewed the documentation as recorded by the Scribe (Scarlett Jackson) Provider Attestation: All medical record entries made by the Scribe were at my direction and personally dictated by me. I have reviewed the chart and agree that the record accurately reflects my personal performance of the history, physical exam, medical decision making, and the department course for this patient. I have also personally directed, reviewed, and agree with the discharge instructions and disposition.
[2018-01-22] MEDS ORDERED: Sodium Chloride 0.9% 1,000 ML IV ONE (15:04)
[2018-01-22 15:19] LABS: BASO % 1.1 % (0.0-2.0); EOS % 0.8 % (0.0-4.0); LYMPH # 2.6 K/uL (1.0-4.3); LYMPH % 57.6 % (20.0-40.0); MEAN CELL VOLUME 90.7 fL (81.0-99.0); MEAN CORPUSCULAR HGB CONC 33.1 g/dL (33.0-37.0); MEAN PLATELET VOLUME 8.3 fL (7.2-11.7); MONO # 0.4 K/uL (0.0-0.8); MONO % 9.3 % (0.0-10.0); NEUT # 1.4 K/uL (1.8-7.0); NEUT % 31.2 % (50.0-75.0); RBC 4.69 Mil/uL (3.80-5.20); RED CELL DISTRIBUTION WIDTH 13.6 % (11.5-14.5); WHITE BLOOD COUNT 4.4 K/uL (4.8-10.8)
[2018-01-22 15:20] LABS: HEMOGLOBIN 14.1 g/dL (11.0-16.0)
[2018-01-22 15:34] LABS: ALB/GLOB RATIO 0.9 (1.0-2.1); ALBUMIN 4.6 g/dL (3.5-5.0); ALT/SGPT 41 U/L (9-52); AST/SGOT 39 U/L (14-36); BLOOD UREA NITROGEN 25 mg/dL (7-17); CALCIUM 10.6 mg/dl (8.6-10.4); GFR AFRICAN-AMERICAN > 60; GFR NON-AFRICAN AMERICAN 53
[2018-01-22] MEDS ORDERED: Dexamethasone 4 mg/1 ml IVP STA (16:19)
[2018-01-22 17:18] VITALS: BP 112/75; PULSE 85; RESP 18; TEMP 97.8
[2018-01-22 22:44] VITALS: O2SAT 99
--- NOTE | 2018-01-23 04:07 | CON ---
DATE: 01/22/2018. REASON FOR CONSULTATION: Left throat pain. HISTORY OF PRESENT ILLNESS: This is patient who is well known to me, had a tonsillectomy done a month ago. The patient was doing better, however, 2 to 3 days ago started complaining of left throat pain which was mild in intensity. The patient was seen in the office by me yesterday, was given antibiotics. The patient presents to ER today with moderate pain on the left throat and states that she is not taking p.o. as she was before. She also states that she is not taking antibiotics that I gave her. PAST MEDICAL HISTORY: As noted in the chart by me. MEDICATIONS: As noted in the chart by me. PHYSICAL EXAMINATION; HEAD: Atraumatic and normocephalic. FACE: Good facial movements bilaterally. CONSTITUTIONAL: Well fed, well nourished. COMMUNICATION: Communicates well and appropriately. EXTERNAL NOSE AND EARS: No masses. No lesions. No erythema. No edema. INTERNAL NOSE AND EARS: Deviated septum. No masses. No lesions. No erythema. No edema. ORAL CAVITY AND OROPHARYNX: Surgical site appeared well. There is [id number] amount of erythema on the left tonsillar fossa. LIPS AND GUMS: No masses. No lesions. No erythema. No edema. NECK: Supple. THYROID: No thyromegaly. No goiter. LYMPH NODES: No lymphadenopathy of the neck. ASSESSMENT: Pharyngitis. PLAN: Recommend antibiotics and Medrol Dosepak if the patient can tolerate adequate p.o. Ray Cronin MD
== END 2018-01-22 17:18 | disposition home or self-care (01) ==
LOC: C.ER 13:33
DX: R07.0 Pain in throat (principal); Z98.890 Other specified postprocedural states
CPT/HCPCS: 80053; 85025; 96361; 96374; 96375; 99284; J1885; J7040